=== PATIENT | male | born 1980 | race Two or more races ===

== ENCOUNTER 2019-11-15 23:44 | Emergency (ER) | payer SELFPAY ==
[~2019-11-15] VITALS: Ht 188 cm; Wt 105.0 kg
[2019-11-16] VITALS: BP 138/88
[2019-11-16 01:13] LABS: BILIRUBIN,URINE NEGATIVE (NEG); CLARITY,URINE CLOUDY; COLOR,URINE RED; NITRITE,URINE NEGATIVE (NEG); PH,URINE 6.5; PROTEIN,URINE 30 mg/dL (NEG-TRACE)
[2019-11-16 01:26] LABS: RBC,URINE TNTC /HPF (0-2); WBC,URINE >40 /HPF (0-4)
[2019-11-16 01:27] LABS: BACTERIA,URINE FEW /HPF (0-FEW); SQUAMOUS EPITHELIAL CELL,UR OCC /LPF
[2019-11-16] MEDS ORDERED: CIPR500T94 PO (02:24)
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
== END 2019-11-16 02:32 | disposition home or self-care (01) ==
LOC: ER 23:44
DX: N39.0 Urinary tract infection, site not specified (principal); R31.9 Hematuria, unspecified; R10.30 Lower abdominal pain, unspecified; Z98.890 Other specified postprocedural states
CPT/HCPCS: 81001; 87086; 99284